=== PATIENT | female | born 1970 | race Asian ===

== ENCOUNTER 2018-04-07 01:12 | Emergency (ER) | payer BC ==
[~2018-04-07] VITALS: Ht 157.5 cm; Wt 39.9 kg
[2018-04-07] MEDS ORDERED: IV NS 0.9% 1,000 ML BAG IV ONE (01:30)
[2018-04-07] MEDS ORDERED: HYDROMORPHONE INJ 2 MG/ML DISP.SYRIN IV ONE (01:30)
[2018-04-07] MEDS ORDERED: ONDANSETRON HCL/PF 4 MG/2 ML VIAL IVP ONE (01:30)
--- NOTE | 2018-04-07 01:30 | NUR ---
Note emeryone in EDM - 04/07/18 at 0207 by FABIANA 47 YO MALE BB FAMILY. PATIENT IS ALERT AND ORIENTED X 3, C/O LEFT FLANK PAIN. PATIENT STATES HE WAS SEEN AT [facility] RECENTLY WHERE CT SHOW KIDNEY STONE AND RENAL CYST. PATIENT STATES TONIGHT THE PAIN BECAME WORSE, CAME FOR EVAL. PATIENT AMBUATED TO ER BED, SKIN WARM AND DYR, RESP EVEN AND UNLABORED. AWAITING ORDERS FROM PROVIDER, WILL CONTINUE TO MONITOR
--- NOTE | 2018-04-07 01:35 | NUR ---
PT BB FROM HOME C/O RUQ ABD PAIN 07/04 NON RADIATING SINCE YESTERDAY, WORSE TODAY. LBM TODAY WITH "SMALL AMOUNTS OF BRIGHT RED BLOOD IN FECES". +N,-V/D. SKIN WNL. VSS. PT IS AAOX4. RESP EVEN AND UNLABORED. NO S/S OF ACUTE DISTRESS NOTED. PT PLACED ON COLLEGE ADVISOR AND POX. PT SAFETY AND COMFORT MEASURES IN PLACE. PT'S BEDSIDE. AWAITING MD FOR EVAL.
[2018-04-07] MEDS ORDERED: ONDANSETRON HCL/PF 4 MG/2 ML VIAL ONE (01:38)
[2018-04-07] MEDS ORDERED: HYDROMORPHONE INJ 2 MG/ML DISP.SYRIN ONE (01:38)
--- NOTE | 2018-04-07 01:50 | NUR ---
Zack umana in [facility] - 04/07/18 at 0207 by FABIANA 19G LEFT AC IV STARTED. BLOOD SAMPLE OBTAINED AND SENT TO LAB
--- NOTE | 2018-04-07 02:00 | NUR ---
BEDSIDE TO ESTABLISH AN IV ACCESS.
[2018-04-07 02:13] LABS: BASOPHILS % (AUTO) 0.1 % (0.0-2.0); EOSINOPHILS % (AUTO) 0.2 % (0.0-6.0); HEMATOCRIT 39 % (33-45); HEMOGLOBIN 13.3 g/dL (11.5-14.8); LYMPHOCYTES # (AUTO) 0.9 /CMM (0.8-4.8); LYMPHOCYTES % (AUTO) 4.4 % (20.0-44.0); MEAN CORPUSCULAR HGB CONC 34 g/dl (31.0-36.0); MEAN CORPUSCULAR VOLUME 89 fL (82-100); MONOCYTES # (AUTO) 1.4 /CMM (0.1-1.30); MONOCYTES % (AUTO) 7.1 % (2.0-12.0); NEUTROPHILS # (AUTO) 17.4 /CMM (1.8-8.9); NEUTROPHILS % (AUTO) 88.2 % (43.0-81.0); PLATELET COUNT (AUTO) 184 /CMM (150-450); RDW COEFFICIENT OF VARIATION 12.1 (11.5-15.0); RED BLOOD CELL COUNT(AUTO) 4.37 MIL/uL (4.0-5.2); WHITE BLOOD COUNT (AUTO) 19.7 K/uL (4.3-11.0)
[2018-04-07 02:24] LABS: CREATININE 0.6 mg/dL (0.6-1.3); POTASSIUM 3.9 mmol/L (3.5-5.1)
[2018-04-07 02:31] LABS: ALBUMIN 3.5 g/dL (3.4-5.0); BILIRUBIN,DIRECT 0.1 mg/dL (0.0-0.2); BILIRUBIN,TOTAL 1.2 mg/dL (0.2-1.0); TOTAL PROTEIN, SERUM 6.9 g/dL (6.4-8.2)
[2018-04-07 02:39] LABS: BAND % (MANUAL) 6 % (0.0-5.0); LYMPHOCYTES % (MANUAL) 6 % (16-48); MONOCYTES % (MANUAL) 5 % (0-11.0); NEUTROPHILS % (MANUAL) 83 (42-76)
[2018-04-07 03:49] VITALS: BP 101/56
--- NOTE | 2018-04-07 04:07 | NUR ---
Called to do ultrasound for liver. I arrived @ 04:07 and found out test was cancelled by dr. ackerman. No call back from radiology
== END 2018-04-07 03:51 | disposition home or self-care (01) ==
LOC: ER 01:15
DX: R10.84 Generalized abdominal pain (principal); D72.829 Elevated white blood cell count, unspecified; Z85.43 Personal history of malignant neoplasm of ovary; Z88.0 Allergy status to penicillin
CPT/HCPCS: 36415; 80048-TC; 80076-TC; 83690-TC; 84703-TC; 85025-TC; A4606; J1170; J2405; J7030; Z7610